=== PATIENT | female | born 1960 | race Caucasian/White ===

== ENCOUNTER → 2016-04-13 | Outpatient (CLI) | payer BC, MEDICAID ==
[~2016-04-13] MED LIST: ADVI200C5 PO; CELE50CA PO; MELA3CAP PO; MVI PO; OMEP20CA3 PO; PROBCAP4 PO; SULFASALAZINE PO; XYZA5TAB PO
--- NOTE | 2016-04-13 10:08 | REPMRS ---
Patient History The patient states she had a clinical breast exam in 03/2016. Patient is postmenopausal and had first child at age 41. Family history of colorectal cancer in mother at age 50 or over, breast cancer in maternal grandmother, and ovarian cancer in maternal grandmother. Digital Woman Screen Mammo: April 13, 2016 - Exam #: [id number] Bilateral CC and MLO view(s) were taken. Technologist: Marce Guevara, Technologist Prior study comparison: April 14, 2015, digital bilateral screening mammo, performed at [facility]. FINDINGS: There are scattered fibroglandular densities. There has been no change in the appearance of the mammogram from the prior studies. There is a mild amount of residual fibroglandular tissue which is fairly symmetric. There is no interval development of dominant mass, architectural distortion, or clustered microcalcification suggestive of malignancy. ASSESSMENT: BI-RADS/ACR category 1 mammogram. Negative. Recommendation Routine screening mammogram in 1 year (for women over age 40). This mammogram was interpreted with the aid of an FDA-approved computer-aided dectection system. Electronically Signed By: Jean Claude Rasmussen MD 04/13/16 1007
== END ==
LOC: M WHC 08:43
PROVIDERS: ATTEND Nurse Practitioner Women's Health
DX: Z12.31 Encounter for screening mammogram for malignant neoplasm of breast (principal); Z80.3 Family history of malignant neoplasm of breast

== ENCOUNTER → 2017-03-01 | Outpatient (REF) | payer OTHER | LOC: M LAB REF 13:24 | DX: D17.39 Benign lipomatous neoplasm of skin and subcutaneous tissue of other sites (principal) | CPT/HCPCS: 88305 ==

== ENCOUNTER → 2017-03-09 | Outpatient (CLI) | payer OTHER | LOC: M WUC 11:20 | DX: R07.82 Intercostal pain (principal) | CPT/HCPCS: 71101 ==

== ENCOUNTER → 2017-04-28 | Outpatient (CLI) | payer OTHER | LOC: M WHC 09:05 | DX: Z12.31 Encounter for screening mammogram for malignant neoplasm of breast (principal) | CPT/HCPCS: 77067 ==

== ENCOUNTER 2017-06-19 12:49 | Emergency (ER) | payer OTHER ==
[2017-06-19] MEDS: ACETAMINOPHEN TAB 650MG DOSE (2X325MG) PO (14:25)
[2017-06-19 14:53] LABS: HEMATOCRIT 39.7 % (36.0-47.0); HEMOGLOBIN 13.6 g/dl (12.0-15.5); MEAN CORPUSCULAR HEMOGLOBIN 33.1 pg (27.0-33.0); MEAN CORPUSCULAR HGB CONC 34.3 g/dl (32.0-36.5); MEAN CORPUSCULAR VOLUME 96.6 fl (80.0-96.0); PLATELET COUNT, AUTOMATED 290 10^3/uL (150-450); RED BLOOD COUNT 4.11 10^6/uL (4.00-5.40); WHITE BLOOD COUNT 6.6 10^3/uL (4.0-10.0)
[2017-06-19] MEDS ORDERED: ISOVUE-370 76% 100ML VIAL (Q9967) As Ordered (15:04)
[2017-06-19 15:05] LABS: ANION GAP 6 MEQ/L (8-16); BLOOD UREA NITROGEN 20 MG/DL (7-18); CALCIUM LEVEL 9.2 MG/DL (8.5-10.1); CARBON DIOXIDE LEVEL 27 MEQ/L (21-32); CHLORIDE LEVEL 108 MEQ/L (98-107); CREATININE FOR GFR 0.95 MG/DL (0.55-1.30); GLOMERULAR FILTRATION RATE > 60.0 (>51); GLUCOSE, FASTING 129 MG/DL (70-100); POTASSIUM SERUM 4.2 MEQ/L (3.5-5.1); SODIUM LEVEL 141 MEQ/L (136-145)
[2017-06-19] MEDS: ONDANSETRON 4MG/2ML VIAL (J2405) IV (15:30)
[2017-06-19] MEDS: CYCLOBENZAPRINE 5MG TABLET PO (15:32)
[2017-06-19] MEDS: MORPHINE 2 MG/ML 1ML SYRINGE (J2270) IV (16:10)
== END 2017-06-19 17:18 | disposition home or self-care (01) ==
LOC: M ED 12:49
DX: Z04.1 Encounter for examination and observation following transport accident (principal); S22.31XA Fracture of one rib, right side, initial encounter for closed fracture; V87.7XXA Person injured in collision between other specified motor vehicles (traffic), initial encounter; Y92.410 Unspecified street and highway as the place of occurrence of the external cause; M06.9 Rheumatoid arthritis, unspecified; Z79.899 Other long term (current) drug therapy
CPT/HCPCS: J2405

== ENCOUNTER → 2017-11-02 | Outpatient (REF) | payer OTHER | LOC: M LAB REF 14:29 | DX: L72.3 Sebaceous cyst (principal) | CPT/HCPCS: 88304 ==

== ENCOUNTER → 2017-11-16 | Outpatient (REF) | payer OTHER | LOC: M LAB REF 19:15 | DX: L72.3 Sebaceous cyst (principal) | CPT/HCPCS: 88304 ==

== ENCOUNTER 2018-04-18 08:51 | Emergency (ER) | payer OTHER ==
[~2018-04-18] VITALS: Ht 167.6 cm; Wt 86.4 kg
[~2018-04-18 08:51] MED LIST changes: +CYCL5TAB PO; +GLUC15009 PO; +OXYC1TAB23 PO; +[UNRECOGNIZED DRUG - OTHER]
[2018-04-18 08:52] VITALS: BP 141/100
[2018-04-18] MEDS ORDERED: DICL75TA (09:02)
[2018-04-18] MEDS ORDERED: SIMV10TA2 (09:02)
[2018-04-18] MEDS ORDERED: PRED5TA (09:02)
[2018-04-18] MEDS ORDERED: OSTETAB4 PO (09:02)
[2018-04-18] MEDS ORDERED: TOPI25TA10 (09:02)
[2018-04-18] MEDS ORDERED: FOLI1TAB11 (09:02)
[2018-04-18] MEDS ORDERED: PROP60CA (09:02)
[2018-04-18] MEDS ORDERED: AUGM875T28 PO (09:30)
[2018-04-18] MEDS ORDERED: AUGMENTIN 875 MG TAB PO ONE (09:30)
[2018-04-18] MEDS ORDERED: ADACEL/BOOSTRIX VACCINE (DIPHTH/PERTUSS/ACELL/TETANUS)0.5ML SYR (90715) IM ONE (09:30)
== END 2018-04-18 09:40 | disposition home or self-care (01) ==
LOC: M ED 08:51
DX: S81.831A Puncture wound without foreign body, right lower leg, initial encounter (principal); S81.811A Laceration without foreign body, right lower leg, initial encounter; W54.0XXA Bitten by dog, initial encounter; Y92.410 Unspecified street and highway as the place of occurrence of the external cause; K58.9 Irritable bowel syndrome, unspecified; Z79.899 Other long term (current) drug therapy

== ENCOUNTER → 2018-04-30 | Outpatient (CLI) | payer OTHER ==
[~2018-04-30] MED LIST changes: +AUGM875T28 PO; +DICL75TA; +FOLI1TAB11; +OSTETAB4 PO; +PRED5TA; +PROP60CA; +SIMV10TA2; +TOPI25TA10
--- NOTE | 2018-04-30 12:02 | REPMRS ---
Patient History The patient states she had a clinical breast exam in 04/2018. Patient is postmenopausal and had first child at age 41. Family history of breast cancer and ovarian cancer in maternal grandmother, colorectal cancer at age 50 or over in mother. No Hormone Replacement Therapy 3D TOMOSYNTHESIS WAS PERFORMED. Digital Woman Screen Mammo: April 30, 2018 - Exam #: [id number] Bilateral CC and MLO view(s) were taken. Technologist: Marce Guevara, Technologist Prior study comparison: April 28, 2017, digital woman screen mammo performed at [facility]. April 13, 2016, digital woman screen mammo performed at [facility]. FINDINGS: There are scattered fibroglandular densities. There has been no change in the appearance of the mammogram from the prior studies. There is a mild amount of residual fibroglandular tissue which is fairly symmetric. There is no interval development of dominant mass, architectural distortion, or clustered microcalcification suggestive of malignancy. Assessment: BI-RADS/ACR category 1 mammogram. Negative Mammogram. Recommendation Routine screening mammogram in 1 year (for women over age 40). This mammogram was interpreted with the aid of an FDA-approved computer-aided dectection system. Electronically Signed By: Jean Claude Rasmussen MD 04/30/18 2105
== END ==
LOC: M WHC 09:30
PROVIDERS: ATTEND Nurse Practitioner Women's Health
DX: Z12.31 Encounter for screening mammogram for malignant neoplasm of breast (principal); Z80.3 Family history of malignant neoplasm of breast; Z80.0 Family history of malignant neoplasm of digestive organs

== ENCOUNTER → 2018-05-01 | Outpatient (REF) | payer OTHER | LOC: M LAB REF 15:18 | PROVIDERS: ATTEND Surgery | DX: L72.3 Sebaceous cyst (principal) ==

== ENCOUNTER 2018-05-13 20:32 | Emergency (ER) | payer OTHER ==
[~2018-05-13] VITALS: Ht 167.6 cm; Wt 84.1 kg
[2018-05-13 20:33] VITALS: BP 140/76
[2018-05-13] MEDS ORDERED: TOPI50TA9 (20:39)
[2018-05-13] MEDS ORDERED: XELJ11TA (20:39)
[2018-05-13] MEDS ORDERED: METH2.5T48 (20:39)
[2018-05-13] MEDS ORDERED: ESTR1TAB3 (20:39)
[2018-05-13] MEDS ORDERED: YUVA10TA3 (20:39)
--- NOTE | 2018-05-14 03:56 | REP ---
Clinical: Trauma/injury. Technique: AP, lateral, bilateral oblique views of the right fourth digit. Findings: Complete posterior dislocation at the fourth proximal interphalangeal joint noted. No obvious acute fracture. Impression: Fourth digit PIP dislocation. Electronically Signed by Bobby Gant MD 05/14/2018 03:47 A
== END 2018-05-13 21:43 | disposition home or self-care (01) ==
LOC: M ED 20:32
DX: S63.254A Unspecified dislocation of right ring finger, initial encounter (principal); W01.0XXA Fall on same level from slipping, tripping and stumbling without subsequent striking against object, initial encounter; Y92.018 Other place in single-family (private) house as the place of occurrence of the external cause; Y93.K1 Activity, walking an animal; E78.5 Hyperlipidemia, unspecified

== ENCOUNTER → 2018-09-06 | Outpatient (REF) | payer OTHER ==
[~2018-09-06] MED LIST changes: +ESTR1TAB3; +METH2.5T48; +TOPI50TA9; +XELJ11TA; +YUVA10TA3
== END ==
LOC: M LAB REF 17:39
PROVIDERS: ATTEND Surgery
DX: D22.5 Melanocytic nevi of trunk (principal)

== ENCOUNTER → 2018-11-13 | Outpatient (CLI) | payer OTHER ==
[~2018-11-13] MED LIST changes: -SIMV10TA2; +SIMV10TA21
--- NOTE | 2018-11-14 04:50 | REP ---
Clinical: Throat pain. Technique: Real time diaz scale and color evaluation using linear high frequency transducer. Findings: The thyroid gland is heterogeneous and somewhat nodular in appearance. The isthmus measures 7.5 mm in width and includes 7 x 5 x 8 mm isoechoic nodule. Right lobe measures 4.5 x 2.0 x 2.2 cm and includes 1.2 x 1.2 x 1.2 cm nonspecific mid pole isoechoic nodule along with 3 x 2 x 3 mm upper pole complex cyst with mural calcification and 12 x 6 x 12 mm mid/lower pole isoechoic nodule. Left lobe measures 4.7 x 1.2 x 1.3 cm and includes 6 x 5 x 7 mm isoechoic lower pole nodule, 5 x 3 x 5 mm isoechoic mid pole nodule, and 5 x 2 x 4 mm upper pole complex cyst with mural calcification. Impression: Multinodular thyroid. Electronically Signed by Bobby Gant MD 11/14/2018 04:42 A
== END ==
LOC: M RAD 09:40
PROVIDERS: ATTEND Physician Assistant
DX: E04.1 Nontoxic single thyroid nodule (principal)

== ENCOUNTER → 2019-08-06 | Outpatient (REF) | payer OTHER | LOC: M LAB REF 16:55 | PROVIDERS: ATTEND Physician Assistant | DX: N39.0 Urinary tract infection, site not specified (principal) ==

== ENCOUNTER → 2019-09-03 | Outpatient (CLI) | payer OTHER ==
--- NOTE | 2019-09-03 17:35 | REP ---
BILATERAL MAMMOGRAM WITH 3D TOMOSYNTHESIS: Family history of breast cancer in maternal grandmother. [facility] lifetime risk of breast cancer 16.3%. COMPARISON: 04/30/2018 as well as other prior exams. MLO and CC views of both breasts performed with 3D tomosynthesis. There is moderate scattered fibroglandular tissue bilaterally. There are no clustered microcalcifications. There is no architectural distortion. There is a possible round nodular density 6 mm in diameter in the upper outer quadrant of the left breast only seen on the MLO view. It is not definitely seen on the CC view. IMPRESSION: BIRADS 0: BI-RADS/ACR category 0 mammogram, Incomplete: Need additional imaging evaluation and/or prior mammograms for comparison. ACR 0 incomplete. Possible 6 mm nodular density upper outer quadrant left breast only seen on the MLO view. It is not seen on the CC view. Recommend spot compression MLO view left breast at that location as well as a left ML tomographic sequence. Further imaging and ultrasound may also be necessary. This mammogram was interpreted with the aid of an FDA-approved computer-aided detection system. The patient states she/he had a clinical breast exam in 08/2019. The patient letter being requested is M0.
== END ==
LOC: M WHC 11:15
PROVIDERS: ATTEND Nurse Practitioner Women's Health
DX: R92.2 Inconclusive mammogram (principal)

== ENCOUNTER → 2019-09-03 | Outpatient (REF) | payer OTHER | LOC: M LAB REF 16:50 | PROVIDERS: ATTEND Physician Assistant | DX: N39.0 Urinary tract infection, site not specified (principal) ==

== ENCOUNTER → 2019-09-10 | Outpatient (CLI) | payer OTHER ==
--- NOTE | 2019-09-10 12:00 | REP ---
DIAGNOSTIC MAMMOGRAM LEFT BREAST WITH LEFT BREAST ULTRASOUND: Spot compression views of the left breast performed including a tomographic sequence in the left ML projection. These confirm the presence of a smoothly marginated 6 mm nodule at the 12-o'clock position of the left breast approximately 4-5 cm from the nipple. Real-time sonographic evaluation of the left breast performed at the 12-o'clock position. At that location, there is a 5 mm cyst which appears benign. IMPRESSION: ACR 2 benign. Spot compression views confirm a 6 mm smoothly marginated nodule at the 12-o'clock position left breast which corresponds to a benign cyst by ultrasound. Recommend followup mammogram in 1 year. Patient letter requested is M1. KAREN
== END ==
LOC: M WHC 08:46
PROVIDERS: ATTEND Nurse Practitioner Women's Health
DX: N63.20 Unspecified lump in the left breast, unspecified quadrant (principal)
CPT/HCPCS: 76642; 77065; G0279

== ENCOUNTER → 2020-01-15 | Outpatient (CLI) | payer OTHER ==
--- NOTE | 2020-01-16 05:09 | REP ---
INDICATION: HX MULTINODULAR THYROID, FULNESS COMPARISON: 11/13/2018 TECHNIQUE: Rasmussen scale and color evaluation of the thyroid gland using the linear high frequency transducer. FINDINGS: Right thyroid lobe measures 4.4 x 2.2 x 2.2 cm and includes multiple nodules including 14 x 12 x 14 mm complex midpole nodule with central cystic component along with 7 x 7 x 6 mm mid/lower pole septated cyst and 3 x 3 x 2 mm upper pole cyst with small mural nodule. Isthmus measures 5.6 mm in width with a right paramedial hypoechoic nodule measuring 8 x 8 x 5 mm. Left lobe measures 5.4 x 1.1 x 1.8 cm and includes multiple nodules including 6 x 5 x 5 mm hypoechoic posterior midpole nodule, 9 x 7 x 8 mm complex hypoechoic mid/lower pole nodule, and 4 x 5 x 4 mm complex hypoechoic midpole nodule. IMPRESSION: Multinodular thyroid with the largest nodules as measured above appearing essentially stable. Nodules appear to be within the benign and indeterminate categories of morphology <Electronically signed by Bobby Gant > 01/16/20 0503
== END ==
LOC: M RAD 13:10
PROVIDERS: ATTEND Physician Assistant
DX: E04.2 Nontoxic multinodular goiter (principal)

== ENCOUNTER → 2020-02-14 | Outpatient (REF) | payer OTHER | LOC: M LAB REF 17:04 | PROVIDERS: ATTEND Internal Medicine Endocrinology, Diabetes & Metabolism | DX: E04.2 Nontoxic multinodular goiter (principal) ==

== ENCOUNTER → 2020-09-16 | Outpatient (CLI) | payer OTHER ==
[~2020-09-16] MED LIST changes: +ISOVUE-370 76% 100ML VIAL ONE
--- NOTE | 2020-09-18 18:18 | REPVR ---
PROCEDURE INFORMATION: Exam: CT Maxillofacial Without and With Contrast, Sinus Exam date and time: 09/16/2020 10:03 AM Age: 60 years old Clinical indication: Mass, lump, or swelling; Maxilla pain; Additional info: Chronic max sinusitis TECHNIQUE: Imaging protocol: CT Maxillofacial without and with intravenous contrast. Focus on the sinuses. Radiation optimization: All CT scans at this facility use at least one of these dose optimization techniques: automated exposure control; mA and/or kV adjustment per patient size (includes targeted exams where dose is matched to clinical indication); or iterative reconstruction. Contrast material: ISOVUE 370; Contrast volume: 75 ml; Contrast route: INTRAVENOUS (IV); COMPARISON: Thyroid, ST head+neck US 01/15/2020 2:31 PM FINDINGS: Frontal sinuses: Normal. No air-fluid levels. Ethmoid air cells: Normal. No air-fluid levels. Sphenoid sinuses: Normal. No air-fluid levels. Maxillary sinuses: Mild inflammatory changes in the maxillary sinuses with mild narrowing of the ostiomeatal complexes. No air-fluid levels. Nasal cavity/Septum: Nasal septum deviated to the left with ipsilateral nasal spur. Orbital cavity: Unremarkable. Bones/joints: Unremarkable. Soft tissues: Unremarkable. IMPRESSION: Mild inflammatory changes in the maxillary sinuses with mild narrowing of the ostiomeatal complexes. No air-fluid levels. Electronically signed by: Flex Lomeli On 09/18/2020 18:18:08 PM
== END ==
LOC: M PLAIMG 09:05
PROVIDERS: ATTEND Physician Assistant
DX: J32.0 Chronic maxillary sinusitis (principal)
CPT/HCPCS: 70488; Q9967

== ENCOUNTER → 2020-09-17 | Outpatient (CLI) | payer OTHER ==
[~2020-09-17] MED LIST changes: -ISOVUE-370 76% 100ML VIAL ONE
--- NOTE | 2020-09-17 08:36 | REPMRS ---
Patient History The patient states she had a clinical breast exam in August 2020. Family history of breast cancer and ovarian cancer in maternal grandmother, colorectal cancer at age 50 or over in mother. No Hormone Replacement Therapy Patient states no breast complaints today. Patient has signed MRS History Sheet. Digital Woman Screen Mammo: September 17, 2020 - Exam #: [id number] Bilateral CC and MLO view(s) were taken. Technologist: Lakshmi Burnham Technologist Prior study comparison: September 10, 2019, left breast diagnostic unilateral mammo performed at [facility]. September 03, 2019, bilateral digital woman screen mammo performed at [facility]. April 30, 2018, bilateral digital woman screen mammo performed at [facility]. April 28, 2017, digital woman screen mammo performed at [facility]. FINDINGS: There are scattered fibroglandular densities. The Volpara volumetric breast density category is:B. There has been no change in the appearance of the mammogram from the prior studies. There is a mild amount of scattered fibroglandular density which is fairly symmetric. There is no interval development of dominant mass, architectural distortion, or grouped microcalcification suggestive of malignancy. 3-D tomosynthesis shows no additional findings. Assessment: BI-RADS/ACR category 1 mammogram. Negative Mammogram. Recommendation Routine screening mammogram of both breasts in 1 year (for women over age 40). This patient's [facility] Lifetime Breast Cancer Risk is estimated at 15.8 %. This mammogram was interpreted with the aid of an FDA-approved computer-aided dectection system. Electronically Signed By: Michael Multani MD 09/17/20 0808
== END ==
LOC: M WHC 07:22
PROVIDERS: ATTEND Nurse Practitioner Women's Health
DX: Z12.31 Encounter for screening mammogram for malignant neoplasm of breast (principal); Z80.3 Family history of malignant neoplasm of breast; Z80.0 Family history of malignant neoplasm of digestive organs

== ENCOUNTER → 2021-02-23 | Outpatient (CLI) | payer OTHER | LOC: M WUC 08:28 | PROVIDERS: ATTEND Physician Assistant | DX: S20.212A Contusion of left front wall of thorax, initial encounter (principal); X58.XXXA Exposure to other specified factors, initial encounter; Y92.9 Unspecified place or not applicable; Y93.9 Activity, unspecified; Y99.9 Unspecified external cause status ==

== ENCOUNTER → 2021-08-09 | Outpatient (CLI) | payer OTHER | LOC: M WUC 10:25 | PROVIDERS: ATTEND Nurse Practitioner Adult Health | DX: R10.12 Left upper quadrant pain (principal) ==

== ENCOUNTER → 2021-10-04 | Outpatient (CLI) | payer OTHER | LOC: M RAD 15:10 | PROVIDERS: ATTEND Nurse Practitioner Adult Health | DX: N23 Unspecified renal colic (principal); K57.30 Diverticulosis of large intestine without perforation or abscess without bleeding ==

== ENCOUNTER → 2021-10-14 | Outpatient (CLI) | payer OTHER ==
[~2021-10-14] MED LIST changes: -FOLI1TAB11; +FOLI1TAB11 PO; +LINZ145C PO; +LORA-674 PO; +MELA3TAB13 PO; +METF500T13 PO; -METH2.5T48; +METH2.5T48 PO; +MULT-90 PO; +OMEP40CA4 PO; +OSTE5TAB PO; +PHEN-239 PO; +PROBCAP14 PO; +ROSU5TAB5 PO; +UPAD30TA PO
== END ==
LOC: M WHC 12:33
PROVIDERS: ATTEND Obstetrics & Gynecology
DX: Z12.31 Encounter for screening mammogram for malignant neoplasm of breast (principal)

== ENCOUNTER → 2021-10-24 | Outpatient (CLI) | payer OTHER | LOC: M LABSMTC 10:29 | PROVIDERS: ATTEND Anesthesiology | DX: Z01.812 Encounter for preprocedural laboratory examination (principal); Z20.822 Contact with and (suspected) exposure to COVID-19 ==

== ENCOUNTER 2021-10-27 11:38 | Day surgery (SDC) | payer OTHER ==
[~2021-10-27] VITALS: Ht 167.6 cm; Wt 77.9 kg
[~2021-10-27 11:38] MED LIST changes: +NS 1,000 ML IV ONE
[2021-10-27] MEDS ORDERED: LIDOCAINE 2% 100MG/5ML SDV (FOR ANES.) As Ordered ONE (13:22)
[2021-10-27] MEDS ORDERED: propofoL 200 MG/20 ML VIAL As Ordered ONE (13:22)
[2021-10-27 14:03] VITALS: BP 137/92
== END 2021-10-27 14:11 | disposition home or self-care (01) ==
LOC: M OPP 11:38
PROVIDERS: ATTEND Surgery
DX: K57.30 Diverticulosis of large intestine without perforation or abscess without bleeding (principal); K64.0 First degree hemorrhoids; K29.60 Other gastritis without bleeding; Z79.1 Long term (current) use of non-steroidal anti-inflammatories (NSAID); Z79.899 Other long term (current) drug therapy; M06.9 Rheumatoid arthritis, unspecified

== ENCOUNTER → 2021-12-20 | Outpatient (CLI) | payer OTHER ==
[~2021-12-20] MED LIST changes: +ISOVUE-370 76% 100ML VIAL As Ordered ONE; -NS 1,000 ML IV ONE
== END ==
LOC: M RAD 13:46
PROVIDERS: ATTEND Physician Assistant
DX: K29.70 Gastritis, unspecified, without bleeding (principal)
CPT/HCPCS: 71260; Q9967

== ENCOUNTER → 2022-03-07 | Outpatient (CLI) | payer OTHER ==
[~2022-03-07] MED LIST changes: -ISOVUE-370 76% 100ML VIAL As Ordered ONE
== END ==
LOC: M WHC 14:08
PROVIDERS: ATTEND Physician Assistant
DX: Z13.820 Encounter for screening for osteoporosis (principal); M85.851 Other specified disorders of bone density and structure, right thigh

== ENCOUNTER → 2022-10-19 | Outpatient (CLI) | payer OTHER, MEDICAID ==
[~2022-10-19] MED LIST changes: +TOPI-254; -TOPI50TA9
== END ==
LOC: M WUC 10:34
PROVIDERS: ATTEND Nurse Practitioner Family
DX: M79.631 Pain in right forearm (principal)

== ENCOUNTER → 2022-11-02 | Outpatient (CLI) | payer OTHER, MEDICAID ==
[~2022-11-02] MED LIST changes: +LORA-1041 PO; -LORA-674 PO
== END ==
LOC: M WHC 11:14
PROVIDERS: ATTEND Nurse Practitioner Family
DX: Z12.31 Encounter for screening mammogram for malignant neoplasm of breast (principal)

== ENCOUNTER → 2022-11-17 | Outpatient (CLI) | payer OTHER, MEDICAID | LOC: M WUC 09:46 | PROVIDERS: ATTEND Physician Assistant | DX: M25.511 Pain in right shoulder (principal); R93.6 Abnormal findings on diagnostic imaging of limbs; M50.323 Other cervical disc degeneration at C6-C7 level; M50.33 Other cervical disc degeneration, cervicothoracic region ==

== ENCOUNTER → 2022-12-05 | Outpatient (REF) | payer OTHER | LOC: M LAB REF 15:51 | PROVIDERS: ATTEND Surgery | DX: D23.61 Other benign neoplasm of skin of right upper limb, including shoulder (principal) ==

== ENCOUNTER → 2023-09-18 | Outpatient (CLI) | payer OTHER, MEDICAID ==
[~2023-09-18] MED LIST changes: +ROSU5TAB40 PO; -ROSU5TAB5 PO; +TOPI-21; -TOPI-254
== END ==
LOC: M WUC 13:28
PROVIDERS: ATTEND Nurse Practitioner Adult Health
DX: M19.041 Primary osteoarthritis, right hand (principal); M25.562 Pain in left knee; M25.531 Pain in right wrist

== ENCOUNTER → 2023-11-06 | Outpatient (CLI) | payer OTHER | LOC: M WHC 10:22 | PROVIDERS: ATTEND Family Medicine | DX: Z12.31 Encounter for screening mammogram for malignant neoplasm of breast (principal); Z13.820 Encounter for screening for osteoporosis; R92.323 Mammographic fibroglandular density, bilateral breasts ==

== ENCOUNTER → 2023-12-11 | Outpatient (CLI) | payer OTHER ==
[2023-12-11 16:10] LABS: APPEARANCE, URINE HAZY (CLEAR); BACTERIA, URINE AUTO NEGATIVE (NEGATIVE); BILIRUBIN, URINE AUTO NEGATIVE (NEGATIVE); BLOOD, URINE BLOOD NEGATIVE (NEGATIVE); COLOR, URINE STRAW (YELLOW); GLUCOSE, URINE (UA) AUTO NEGATIVE (NEGATIVE); KETONE, URINE AUTO NEGATIVE (NEGATIVE); LEUKOCYTE ESTERASE, URINE AUTO NEGATIVE (NEGATIVE); NITRITE, URINE AUTO NEGATIVE (NEGATIVE); PROTEIN, URINE AUTO NEGATIVE (NEGATIVE); RBC, URINE AUTO 0 /HPF (0-3); SPECIFIC GRAVITY URINE AUTO 1.008 (1.002-1.035); SQUAMOUS EPITHELIAL CELL UR AU 6 /HPF (0-6); UROBILINOGEN, URINE AUTO 0.2 mg/dL (0.0-2.0); WBC, URINE AUTO 0 /HPF (0-3)
[2023-12-11 16:13] LABS: BASO % 0.7 % (0.0-1.0); EOS # 0.2 10^3/uL (0.0-0.5); EOS % 3.7 % (0.0-3.0); HEMATOCRIT 40.4 % (36.0-47.0); HEMOGLOBIN 13.6 g/dl (12.0-15.5); LYMPH # 1.8 10^3/uL (1.5-5.0); LYMPH % 29.4 % (24.0-44.0); MEAN CORPUSCULAR HEMOGLOBIN 32.8 pg (27.0-33.0); MEAN CORPUSCULAR HGB CONC 33.7 g/dl (32.0-36.5); MEAN CORPUSCULAR VOLUME 97.3 fl (80.0-96.0); MONO # 0.5 10^3/uL (0.0-0.8); MONO % 8.9 % (2.0-8.0); NEUTROPHILS # 3.4 10^3/uL (1.5-8.5); PLATELET COUNT, AUTOMATED 297 10^3/uL (150-450); RED BLOOD COUNT 4.15 10^6/uL (4.00-5.40)
[2023-12-11 16:40] LABS: ALBUMIN 3.9 G/DL (3.2-5.2); ALKALINE PHOSPHATASE 74 U/L (46-116); ALT/SGPT 32 U/L (7.0-40); AST/SGOT 15 U/L (<34); BILIRUBIN,TOTAL 0.4 MG/DL (0.3-1.2); BLOOD UREA NITROGEN 17 MG/DL (9-23); CARBON DIOXIDE LEVEL 27 MMOL/L (20-31); CHLORIDE LEVEL 107 MMOL/L (98-107); CREATININE FOR GFR 0.94 MG/DL (0.55-1.30); GLOMERULAR FILTRATION RATE > 60.0 (>45); GLUCOSE, FASTING 83 MG/DL (74-106); POTASSIUM SERUM 4.2 MMOL/L (3.5-5.1); SODIUM LEVEL 140 MMOL/L (136-145); TOTAL PROTEIN 6.9 G/DL (5.7-8.2)
== END ==
LOC: M PLAIMG 13:31
PROVIDERS: ATTEND Physician Assistant
DX: A27.9 Leptospirosis, unspecified (principal); J98.11 Atelectasis; J84.89 Other specified interstitial pulmonary diseases

== ENCOUNTER → 2024-01-15 | Outpatient (CLI) | payer OTHER ==
[~2024-01-15] MED LIST changes: -CYCL5TAB PO; +CYCL5TAB4 PO; -ROSU5TAB40 PO; +ROSU5TAB49 PO
== END ==
LOC: M PLAIMG 11:04
PROVIDERS: ATTEND Physician Assistant
DX: M25.551 Pain in right hip (principal); M25.562 Pain in left knee

== ENCOUNTER → 2024-03-01 | Outpatient (CLI) | payer OTHER | LOC: M RAD 12:18 | PROVIDERS: ATTEND Physician Assistant | DX: M25.562 Pain in left knee (principal) ==

== ENCOUNTER → 2024-03-12 | Outpatient (CLI) | payer OTHER | LOC: M WHC 14:26 | PROVIDERS: ATTEND Nurse Practitioner Adult Health | DX: Z13.820 Encounter for screening for osteoporosis (principal); M85.89 Other specified disorders of bone density and structure, multiple sites ==

== ENCOUNTER → 2024-11-11 | Outpatient (CLI) | payer OTHER ==
[~2024-11-11] MED LIST changes: -PHEN-239 PO; +PHEN37.511 PO; +TOPI-256; -TOPI25TA10
== END ==
LOC: M WHC 10:07
PROVIDERS: ATTEND Physician Assistant
DX: Z12.31 Encounter for screening mammogram for malignant neoplasm of breast (principal)

== ENCOUNTER → 2024-11-15 | Outpatient (CLI) | payer OTHER ==
[2024-11-15 10:32] LABS: BASO # 0.0 10^3/uL (0.0-0.2); BASO % 0.6 % (0.0-1.0); EOS # 0.2 10^3/uL (0.0-0.5); EOS % 4.0 % (0.0-3.0); LYMPH # 1.3 10^3/uL (1.5-5.0); LYMPH % 25.0 % (24.0-44.0); MONO # 0.5 10^3/uL (0.0-0.8); MONO % 10.1 % (2.0-8.0); NEUTROPHILS # 3.2 10^3/uL (1.5-8.5); NEUTROPHILS % 60.1 % (36.0-66.0); PLATELET COUNT, AUTOMATED 253 10^3/uL (150-450)
[2024-11-15 10:36] LABS: ERYTHROCYTE SEDIMENTATION RATE 4 mm/hr (0-30)
[2024-11-15 10:52] LABS: C REACTIVE PROTEIN QUANTITATIV < 0.50 MG/DL (<1.0); RHEUMATOID FACTOR QUANT 9.7 IU/ML (<14)
[2024-11-15 10:53] LABS: ALT/SGPT 21 U/L (7.0-40); AST/SGOT 14 U/L (<34); CALCIUM LEVEL 9.1 MG/DL (8.3-10.6); CARBON DIOXIDE LEVEL 25 MMOL/L (20-31); CHLORIDE LEVEL 108 MMOL/L (98-107); CHOLESTEROL LEVEL 217 MG/DL (<200); CHOLESTEROL RISK RATIO 3.12 (<5); CREATININE FOR GFR 0.98 MG/DL (0.55-1.30); GLOMERULAR FILTRATION RATE 64.9 (>45); LDL CHOLESTEROL 123.6 MG/DL (<100); NON-HDL-C 147.6 MG/DL; POTASSIUM SERUM 4.2 MMOL/L (3.5-5.1); SODIUM LEVEL 142 MMOL/L (136-145); TRIGLYCERIDES LEVEL 120 MG/DL (<150)
== END ==
LOC: M LAB 09:04
PROVIDERS: ATTEND Physician Assistant
DX: M05.9 Rheumatoid arthritis with rheumatoid factor, unspecified (principal); E78.00 Pure hypercholesterolemia, unspecified